=== PATIENT | male | born 1980 | race Caucasian/White ===

== ENCOUNTER 2019-03-23 22:01 | Emergency (ER) | payer OTHER | END 2019-03-24 00:03 | disposition home or self-care (01) | LOC: JER 03-24 00:03 | PROC: 3E0234Z Introduction of Serum, Toxoid and Vaccine into Muscle, Percutaneous Approach (ICD-10-PCS; principal; 2019-03-23) | DX: S61.210A Laceration without foreign body of right index finger without damage to nail, initial encounter (principal); W26.0XXA Contact with knife, initial encounter; Y93.89 Activity, other specified; Y92.89 Other specified places as the place of occurrence of the external cause; Y99.8 Other external cause status ==

== ENCOUNTER 2019-03-30 13:37 | Emergency (ER) | payer OTHER | END 2019-03-30 14:31 | disposition home or self-care (01) | LOC: JERFT 13:37 ==

== ENCOUNTER 2020-11-22 20:48 | Emergency (ER) | payer OTHER ==
[2020-11-22 20:54] VITALS: TEMP 98.1; BMI 23.7
[2020-11-22] MEDS ORDERED: ACETAMINOPHEN 325 MG TABLET (FP) PO ONE (23:02)
[2020-11-22] MEDS ORDERED: ACETAMINOPHEN 325 MG TABLET (FP) ONE (23:06)
[2020-11-23 01:00] VITALS: BP 126/84; PULSE 95
== END 2020-11-23 01:02 | disposition home or self-care (01) ==
LOC: JER 20:48
DX: S42.031A Displaced fracture of lateral end of right clavicle, initial encounter for closed fracture (principal)
CPT/HCPCS: 70450-TC; 72125-TC; 73030-TC-RT-FY; 82962; 99285-25

== ENCOUNTER 2021-02-12 19:57 | Emergency (ER) | payer OTHER ==
[2021-02-12 20:01] VITALS: BP 126/78; PULSE 94; TEMP 98; BMI 23.7
== END 2021-02-12 21:39 | disposition home or self-care (01) ==
LOC: JERFT 19:57
PROC: 0HQGXZZ Repair Left Hand Skin, External Approach (ICD-10-PCS; principal; 2021-02-12)
DX: S61.211A Laceration without foreign body of left index finger without damage to nail, initial encounter (principal)
CPT/HCPCS: 99282-25

== ENCOUNTER 2023-03-31 18:51 | Emergency (ER) | payer OTHER ==
[2023-03-31 19:05] VITALS: BP 115/67; PULSE 80; RESP 16; TEMP 98.4; BMI 22.4
[2023-03-31] MEDS ORDERED: KETOROLAC TROMETHAMINE 30 MG/1 ML VIAL IM ONE (19:34)
[2023-03-31] MEDS ORDERED: KETOROLAC TROMETHAMINE 30 MG/1 ML VIAL ONE (19:37)
== END 2023-03-31 21:02 | disposition home or self-care (01) ==
LOC: JERFT 18:51
PROC: 3E0233Z Introduction of Anti-inflammatory into Muscle, Percutaneous Approach (ICD-10-PCS; principal; 2023-03-31)
DX: S42.212A Unspecified displaced fracture of surgical neck of left humerus, initial encounter for closed fracture (principal); S43.122A Dislocation of left acromioclavicular joint, 100%-200% displacement, initial encounter; W10.9XXA Fall (on) (from) unspecified stairs and steps, initial encounter
CPT/HCPCS: 73030-TC-LT-FY; 73070-TC-LT-FY; 99284-25